=== PATIENT | male | born 1960 | race Hispanic/Latino ===

== ENCOUNTER 2020-03-26 23:45 | Inpatient (IN) | payer MEDICARE ==
[~2020-03-26] VITALS: Ht 177.8 cm; Wt 102.5 kg
[2020-03-27] MEDS ORDERED: ACETAMINOPHEN EXTRA STRENGTH 500 MG TABLET ONE (00:20)
[2020-03-27 00:31] LABS: BASOPHILS % (AUTO) 0.4 % (0.0-5.0); EOSINOPHILS % (AUTO) 0.5 % (0.0-8.0); HEMATOCRIT 32.7 % (42-54); LYMPHOCYTES % (AUTO) 5.7 % (21.0-51.0); MEAN CORPUSCULAR HEMOGLOBIN 31.3 pg (27.0-33.0); MEAN CORPUSCULAR HGB CONC 32.7 g/dL (32.0-36.0); MEAN CORPUSCULAR VOLUME 95.6 fL (79-99); MONOCYTES % (AUTO) 4.5 % (3.0-13.0); NEUTROPHILS % (AUTO) 87.8 % (40.0-77.0); PLATELET COUNT (AUTO) 316 K/uL (130-400); RED BLOOD CELL COUNT(AUTO) 3.42 MIL/uL (4.50-6.20); WHITE BLOOD COUNT (AUTO) 13.6 K/uL (4.8-10.8)
[2020-03-27 00:40] LABS: CARBON DIOXIDE 27 mmol/L (21-32); CHLORIDE 99 mmol/L (101-111); CREATININE 5.9 mg/dL (0.5-1.5); GLOMERULAR FILTR. RATE CALC 10 mL/min (>60); GLUCOSE,RANDOM 272 mg/dL (70-105); POTASSIUM 4.3 mmol/L (3.5-5.1); SODIUM SERUM 134 mmol/L (136-145); UREA NITROGEN, BLOOD 37 mg/dL (7-18)
[2020-03-27 00:42] LABS: ALBUMIN 2.5 g/dL (3.5-5.0); ASPARTATE AMINOTRANSFERASE 13 U/L (10-37); BILIRUBIN,TOTAL 0.2 mg/dL (0.2-1.0); TOTAL PROTEIN, SERUM 7.5 g/dL (6.0-8.3)
[2020-03-27 00:43] LABS: ALANINE AMINOTRANSFERASE < 6 U/L (12-78)
[2020-03-27 00:44] LABS: INR 1.09 (0.85-1.15); PARTIAL THROMBOPLASTIN TIME 30.2 SEC (26.3-35.5); PROTHROMBIN TIME 11.7 SEC (9.6-11.6)
[2020-03-27 00:46] LABS: CREATINE KINASE, TOTAL 50 U/L (21-232); MYOGLOBIN 167 ng/mL (10-92); TROPONIN I < 0.04 ng/mL (0.00-0.06)
[2020-03-27] MEDS ORDERED: CLINDAMYCIN 900 MG/D5% WATER 50 ML IV ONE (01:57)
[2020-03-27] MEDS ORDERED: MORPHINE SULFATE 4 MG/1ML SYG ONE (01:58)
[2020-03-27] MEDS ORDERED: KETOROLAC TROMETHAMINE 30MG/ML ONE (01:58)
[2020-03-27] MEDS ORDERED: ONDANSETRON HCL 4 MG/2 ML VIAL ONE (01:58)
[2020-03-27] MEDS ORDERED: VANCOMYCIN 1GM+NS 250ML 250 ML IV SCH (03:00)
[2020-03-27] MEDS ORDERED: ACETAMINOPHEN 325 MG TAB PO PRN (03:00)
[2020-03-27] MEDS ORDERED: DEXTROSE 50%-WATER 50 ML DISP.SYRIN IV PRN (03:00)
[2020-03-27] MEDS ORDERED: ONDANSETRON HCL 4 MG/2 ML VIAL IV PRN (03:00)
[2020-03-27] MEDS ORDERED: GLUCAGON 1MG KIT 1 MG ML IM PRN (03:00)
[2020-03-27] MEDS ORDERED: LACTULOSE 20 GM/30 ML UDCUP PO PRN (03:00)
[2020-03-27] MEDS ORDERED: CEFTRIAXONE SODIUM 1 GM ONE (03:05)
[2020-03-27] MEDS ORDERED: VANCOMYCIN 1GM+NS 250ML 250 ML IV ONE (03:42)
[2020-03-27] MEDS ORDERED: ZOSYN 3.375GM+NS 50ML 50 ML IV ONE ×3 (03:42→22:12)
[2020-03-27] MEDS ORDERED: VANCOMYCIN PROTOCOL PER PHARMACY IV SCH (04:00)
[2020-03-27] MEDS ORDERED: PHARMACY COMMUNICATION MISC SCH (04:00)
[2020-03-27] MEDS: ZOSYN 3.375GM+NS 50ML 50 ML IV SCH ×3 (05:00→21:00)
[2020-03-27] MEDS: INSULIN HUMULIN R 100 UNIT/ML 3ML SQ SCH ×4 (07:30→21:00)
[2020-03-27] MEDS: FAMOTIDINE 20MG TAB 20 MG TAB PO SCH ×2 (09:00→21:00)
[2020-03-27] MEDS: HEPARIN SODIUM 5000UNIT/ML 1ML VIAL SQ SCH ×2 (09:00→21:00)
[2020-03-27] MEDS ORDERED: COMPOUND IV REFRIGERATED 1 EACH IVSOLN MISC PRN (09:30)
[2020-03-27] MEDS ORDERED: FAMOTIDINE 20MG TAB 20 MG TAB ONE (14:20)
[2020-03-27] MEDS ORDERED: HEPARIN SODIUM 5000UNIT/ML 1ML VIAL ONE (14:20)
[2020-03-27] MEDS ORDERED: INSULIN HUMULIN R 100 UNIT/ML 3ML ONE (22:13)
[2020-03-28 01:36] VITALS: BP 117/89
[2020-03-28 04:52] LABS: BASOPHILS % (AUTO) 0.3 % (0.0-5.0); EOSINOPHILS % (AUTO) 0.7 % (0.0-8.0); HEMATOCRIT 32.3 % (42-54); LYMPHOCYTES % (AUTO) 9.3 % (21.0-51.0); MEAN CORPUSCULAR HEMOGLOBIN 31.5 pg (27.0-33.0); MEAN CORPUSCULAR HGB CONC 32.8 g/dL (32.0-36.0); MEAN CORPUSCULAR VOLUME 95.8 fL (79-99); MONOCYTES % (AUTO) 6.3 % (3.0-13.0); NEUTROPHILS % (AUTO) 82.2 % (40.0-77.0); PLATELET COUNT (AUTO) 319 K/uL (130-400); RED BLOOD CELL COUNT(AUTO) 3.37 MIL/uL (4.50-6.20); WHITE BLOOD COUNT (AUTO) 14.7 K/uL (4.8-10.8)
[2020-03-28] MEDS: ZOSYN 3.375GM+NS 50ML 50 ML IV SCH ×3 (05:00→19:45)
[2020-03-28 05:08] LABS: CREATININE 7.4 mg/dL (0.5-1.5); POTASSIUM 5.2 mmol/L (3.5-5.1)
[2020-03-28] MEDS ORDERED: ZOSYN 3.375GM+NS 50ML 50 ML IV ONE ×2 (05:48→16:19)
[2020-03-28] MEDS ORDERED: HYDROMORPHONE HCL 0.5 MG/0.5 ML ML ONE (06:59)
[2020-03-28] MEDS: INSULIN HUMULIN R 100 UNIT/ML 3ML SQ SCH ×4 (07:30→19:45)
[2020-03-28] MEDS: FAMOTIDINE 20MG TAB 20 MG TAB PO SCH ×2 (09:00→19:45)
[2020-03-28] MEDS: HEPARIN SODIUM 5000UNIT/ML 1ML VIAL SQ SCH ×2 (09:00→19:45)
[2020-03-28] MEDS ORDERED: FAMOTIDINE 20MG TAB 20 MG TAB ONE (09:29)
[2020-03-28] MEDS ORDERED: LIDOCAINE HCL 1% 20 ML VIAL ONE (17:31)
[2020-03-28] MEDS ORDERED: BUPIVACAINE/PF 0.5% 10ML VIAL ONE (17:31)
[2020-03-28] MEDS ORDERED: FENTANYL CITRATE PF 50 MCG/1 ML 2ML VIAL ONE ×3 (18:14→23:02)
[2020-03-28] MEDS ORDERED: MIDAZOLAM HCL 1 MG/ML 2ML VIAL ONE ×2 (18:14→23:43)
[2020-03-28 20:31] VITALS: BP 163/87
[2020-03-28] MEDS ORDERED: METOCLOPRAMIDE 10 MG/2 ML VIAL ONE (21:40)
[2020-03-28] MEDS ORDERED: BUPIVACAINE/PF 0.5% 10ML VIAL IJ ONE (22:50)
[2020-03-28] MEDS ORDERED: LIDOCAINE HCL 1% 20 ML VIAL INJ ONE (22:50)
[2020-03-28] MEDS ORDERED: PROPOFOL 10 MG/ML 20ML VIAL IV ONE (23:21)
[2020-03-28 23:58] VITALS: BP 149/109
[2020-03-29] VITALS (19 sets, daily range): BP systolic 100–168; BP diastolic 42–119
[2020-03-29] MEDS: HYDROMORPHONE 1 MG/1 ML AMP IV PRN ×2 (02:15→10:02)
[2020-03-29] MEDS: ZOSYN 3.375GM+NS 50ML 50 ML IV SCH ×3 (05:08→21:03)
[2020-03-29] MEDS: ACETAMINOPHEN 325 MG TAB PO PRN (05:11)
[2020-03-29 05:17] LABS: HEMATOCRIT 30.7 % (42-54); MEAN CORPUSCULAR HEMOGLOBIN 30.9 pg (27.0-33.0); MEAN CORPUSCULAR HGB CONC 32.6 g/dL (32.0-36.0); MEAN CORPUSCULAR VOLUME 94.8 fL (79-99); RED BLOOD CELL COUNT(AUTO) 3.24 MIL/uL (4.50-6.20); RED CELL DISTRIBUTION WIDTH 11.8 % (11.0-15.5); WHITE BLOOD COUNT (AUTO) 11.3 K/uL (4.8-10.8)
[2020-03-29 05:35] LABS: MAGNESIUM 2.2 mg/dL (1.80-2.40); PHOSPHORUS 7.3 mg/dL (2.5-4.9); POTASSIUM 5.3 mmol/L (3.5-5.1)
[2020-03-29] MEDS: INSULIN HUMULIN R 100 UNIT/ML 3ML SQ SCH ×4 (06:33→21:19)
[2020-03-29] MEDS ORDERED: VANCOMYCIN 1.25 GM in SODIUM CHLORIDE 0.9% 250 ML IV SCH (09:00)
[2020-03-29] MEDS: HEPARIN SODIUM 5000UNIT/ML 1ML VIAL SQ SCH ×2 (09:00→21:20)
[2020-03-29] MEDS: FAMOTIDINE 20MG TAB 20 MG TAB PO SCH ×2 (10:02→21:03)
[2020-03-29] MEDS: HYDROMORPHONE HCL 0.5 MG/0.5 ML ML IV PRN ×2 (14:53→23:04)
[2020-03-29] MEDS ORDERED: CALCIUM ACETATE 667 MG CAPSULE PO SCH (17:00)
[2020-03-29] MEDS ORDERED: ACETAMINOPHEN-CODEINE 300/30MG TAB PO SCH (17:15)
[2020-03-29] MEDS: EPOETIN ALFA-EPBX (ESRD) 10,000 UNIT/ML VIAL SQ SCH (17:23)
[2020-03-29] MEDS ORDERED: TEMAZEPAM 7.5 MG CAPSULE PO SCH (20:00)
[2020-03-30] VITALS (9 sets, daily range): BP systolic 119–169; BP diastolic 63–81
[2020-03-30] MEDS: ACETAMINOPHEN 325 MG TAB PO PRN (02:04)
[2020-03-30] MEDS: ZOSYN 3.375GM+NS 50ML 50 ML IV SCH ×2 (05:35→13:05)
[2020-03-30] MEDS: INSULIN HUMULIN R 100 UNIT/ML 3ML SQ SCH ×4 (05:45→23:30)
[2020-03-30 06:12] LABS: BASOPHILS % (AUTO) 0.6 % (0.0-5.0); EOSINOPHILS % (AUTO) 1.5 % (0.0-8.0); HEMATOCRIT 28.5 % (42-54); LYMPHOCYTES % (AUTO) 10.8 % (21.0-51.0); MEAN CORPUSCULAR HEMOGLOBIN 30.8 pg (27.0-33.0); MEAN CORPUSCULAR HGB CONC 33.3 g/dL (32.0-36.0); MEAN CORPUSCULAR VOLUME 92.5 fL (79-99); MONOCYTES % (AUTO) 9.2 % (3.0-13.0); NEUTROPHILS % (AUTO) 75.5 % (40.0-77.0); PLATELET COUNT (AUTO) 302 K/uL (130-400); RED BLOOD CELL COUNT(AUTO) 3.08 MIL/uL (4.50-6.20); RED CELL DISTRIBUTION WIDTH 11.8 % (11.0-15.5)
[2020-03-30] MEDS: HYDROMORPHONE HCL 0.5 MG/0.5 ML ML IV PRN ×3 (06:35→21:12)
[2020-03-30 06:41] LABS: ALBUMIN 2.1 g/dL (3.5-5.0); BILIRUBIN,TOTAL 0.4 mg/dL (0.2-1.0); CREATININE 6.5 mg/dL (0.5-1.5); POTASSIUM 4.3 mmol/L (3.5-5.1); TOTAL PROTEIN, SERUM 7.1 g/dL (6.0-8.3)
[2020-03-30] MEDS: FAMOTIDINE 20MG TAB 20 MG TAB PO SCH ×2 (11:41→20:47)
[2020-03-30] MEDS: Vitamin B Complex/Vit C/Folic Acid PO SCH (11:41)
[2020-03-30] MEDS: SEVELAMER HCL 800 MG TABLET PO SCH ×3 (11:42→17:00)
[2020-03-30] MEDS ORDERED: DiphenhydrAMINE HCL 50 MG/ML VIAL IVP PRN (12:30)
[2020-03-30 12:35] LABS: HEMATOCRIT 28.5 % (42-54); MEAN CORPUSCULAR HGB CONC 33.3 g/dL (32.0-36.0); MEAN CORPUSCULAR VOLUME 93.1 fL (79-99); RED BLOOD CELL COUNT(AUTO) 3.06 MIL/uL (4.50-6.20); RED CELL DISTRIBUTION WIDTH 11.8 % (11.0-15.5); WHITE BLOOD COUNT (AUTO) 10.8 K/uL (4.8-10.8)
[2020-03-30 12:53] LABS: POTASSIUM 4.7 mmol/L (3.5-5.1)
[2020-03-30 12:56] LABS: INR 1.23 (0.85-1.15)
[2020-03-30 12:58] LABS: PARTIAL THROMBOPLASTIN TIME 28.8 SEC (26.3-35.5)
[2020-03-30] MEDS ORDERED: HEPARIN SODIUM 1000UNIT/ML 10ML VIAL ONE ×2 (13:08→17:21)
[2020-03-30] MEDS ORDERED: NITROGLYCERIN 2 MG/VIAL VIAL IV ONE (13:08)
[2020-03-30] MEDS ORDERED: LIDOCAINE HCL 2% 20ML ONE (13:08)
[2020-03-30] MEDS ORDERED: IODIXANOL 320 MG/ML 100 ML VIAL ONE ×3 (13:08→17:48)
[2020-03-30] MEDS: CEFTAZIDIME PENTAHYDRATE 1 GM/VIAL IVP SCH (13:48)
[2020-03-30] MEDS ORDERED: FENTANYL CITRATE PF 50 MCG/1 ML 2ML VIAL ONE (15:39)
[2020-03-30] MEDS ORDERED: MIDAZOLAM HCL 1 MG/ML 2ML VIAL ONE (15:39)
[2020-03-30] MEDS ORDERED: TICAGRELOR 90 MG TABLET ONE (17:33)
[2020-03-30] MEDS ORDERED: ASPIRIN 325MG EC TAB 325 MG TABLET.DR PO ONE (17:33)
[2020-03-30] MEDS ORDERED: SODIUM CHLORIDE 0.9% 1000ML 1,000 ML IV SCH (18:15)
[2020-03-30] MEDS: ATORVASTATIN CALCIUM 40 MG TABLET PO SCH (20:47)
[2020-03-30 21:48] LABS: APPEARANCE,URINE Clear (CLEAR); BILIRUBIN,URINE Negative (NEGATIVE); COLOR,URINE Yellow (YELLOW); GLUCOSE, URINE (UA) TRACE mg/dL (NEGATIVE); KETONES,URINE Negative (NEGATIVE); LEUKOCYTE ESTERASE ,URINE Negative (NEGATIVE); NITRATE,URINE Negative (NEGATIVE); OCCULT BLOOD,URINE Small (NEGATIVE); PH,URINE 7.5 (5.0-8.0); PROTEIN,URINE 300 mg/dL (NEGATIVE); UROBILINOGEN,URINE 0.2 mg/dL (0.2-1.0)
[2020-03-30 21:55] LABS: WBC,URINE 0-1 /HPF (0-1)
[2020-03-30 21:56] LABS: BACTERIA,URINE Rare /HPF (None Seen); MUCUS,URINE Rare LPF (None Seen); SQUAMOUS EPITHELIAL CELL,UR Rare /HPF (0-2)
[2020-03-31] MEDS: HYDROMORPHONE HCL 0.5 MG/0.5 ML ML IV PRN ×3 (02:39→18:13)
[2020-03-31] MEDS ORDERED: TICAGRELOR 90 MG TABLET ONE (02:54)
[2020-03-31 04:00] VITALS: BP 161/81
[2020-03-31] MEDS ORDERED: TICAGRELOR 90 MG TABLET PO SCH (04:00)
[2020-03-31 04:44] LABS: BASOPHILS % (AUTO) 0.5 % (0.0-5.0); EOSINOPHILS % (AUTO) 1.6 % (0.0-8.0); HEMATOCRIT 31.2 % (42-54); LYMPHOCYTES % (AUTO) 7.8 % (21.0-51.0); MEAN CORPUSCULAR HGB CONC 33.3 g/dL (32.0-36.0); MEAN CORPUSCULAR VOLUME 93.1 fL (79-99); MONOCYTES % (AUTO) 6.9 % (3.0-13.0); NEUTROPHILS % (AUTO) 80.9 % (40.0-77.0); PLATELET COUNT (AUTO) 369 K/uL (130-400); RED BLOOD CELL COUNT(AUTO) 3.35 MIL/uL (4.50-6.20); RED CELL DISTRIBUTION WIDTH 11.8 % (11.0-15.5); WHITE BLOOD COUNT (AUTO) 13.3 K/uL (4.8-10.8)
[2020-03-31 04:58] LABS: CREATININE 7.8 mg/dL (0.5-1.5); POTASSIUM 4.7 mmol/L (3.5-5.1)
[2020-03-31] MEDS: INSULIN HUMULIN R 100 UNIT/ML 3ML SQ SCH ×4 (07:06→21:59)
[2020-03-31 08:38] VITALS: BP 167/69
[2020-03-31 11:53] VITALS: BP 154/86
[2020-03-31] MEDS: FAMOTIDINE 20MG TAB 20 MG TAB PO SCH ×2 (12:21→21:53)
[2020-03-31] MEDS: Vitamin B Complex/Vit C/Folic Acid PO SCH (12:22)
[2020-03-31] MEDS: SEVELAMER HCL 800 MG TABLET PO SCH ×3 (12:22→16:34)
[2020-03-31] MEDS: CEFTAZIDIME PENTAHYDRATE 1 GM/VIAL IVP SCH (12:22)
[2020-03-31] MEDS: CLOPIDOGREL BISULFATE 75 MG TAB PO SCH (12:22)
[2020-03-31] MEDS: ASPIRIN 81MG TAB.CHEW PO SCH (12:22)
[2020-03-31 16:20] VITALS: BP 159/86
[2020-03-31] MEDS: EPOETIN ALFA-EPBX (ESRD) 10,000 UNIT/ML VIAL SQ SCH (18:09)
[2020-03-31 20:00] VITALS: BP 160/85
[2020-03-31] MEDS: ATORVASTATIN CALCIUM 40 MG TABLET PO SCH (21:54)
[2020-04-01] VITALS (7 sets, daily range): BP systolic 144–158; BP diastolic 64–83
[2020-04-01] MEDS: HYDROMORPHONE HCL 0.5 MG/0.5 ML ML IV PRN (02:23)
[2020-04-01 04:49] LABS: HEMATOCRIT 31.5 % (42-54); MEAN CORPUSCULAR VOLUME 93.8 fL (79-99); PLATELET COUNT (AUTO) 397 K/uL (130-400); RED BLOOD CELL COUNT(AUTO) 3.36 MIL/uL (4.50-6.20); WHITE BLOOD COUNT (AUTO) 12.1 K/uL (4.8-10.8)
[2020-04-01 04:55] LABS: CREATININE 6.4 mg/dL (0.5-1.5); PHOSPHORUS 4.9 mg/dL (2.5-4.9); POTASSIUM 4.4 mmol/L (3.5-5.1)
[2020-04-01 05:10] LABS: BAND NEUTROPHILS % (MANUAL) 1 % (0-2); EOSINOPHILS % (MANUAL) 1 % (1-6); LYMPHOCYTES % (MANUAL) 10 % (22-44); MAN.DIFF COMMENT-IMPRESSION MANUAL DIFFERENTIAL; MONOCYTES % (MANUAL) 9 % (2-9); SEGMENTED NEUTROPHILS % 79 % (40-70)
[2020-04-01 05:11] LABS: PLATELET MORPHOLOGY COMMENT ADEQUATE
[2020-04-01] MEDS: INSULIN HUMULIN R 100 UNIT/ML 3ML SQ SCH ×3 (05:59→17:38)
[2020-04-01] MEDS ORDERED: TRAMADOL HCL 50 MG TABLET PO SCH (08:04)
[2020-04-01] MEDS ORDERED: HYDROMORPHONE HCL 0.5 MG/0.5 ML ML IVP PRN (08:30)
[2020-04-01] MEDS: CLOPIDOGREL BISULFATE 75 MG TAB PO SCH (08:40)
[2020-04-01] MEDS: Vitamin B Complex/Vit C/Folic Acid PO SCH (08:40)
[2020-04-01] MEDS: SEVELAMER HCL 800 MG TABLET PO SCH ×3 (08:40→17:38)
[2020-04-01] MEDS: ASPIRIN 81MG TAB.CHEW PO SCH (08:40)
[2020-04-01] MEDS: FAMOTIDINE 20MG TAB 20 MG TAB PO SCH ×2 (08:40→20:16)
[2020-04-01] MEDS ORDERED: AMLODIPINE BESYLATE 5 MG TAB PO SCH (09:00)
[2020-04-01] MEDS ORDERED: RENAL DOSE IV SCH (12:30)
[2020-04-01] MEDS: CEFTAZIDIME PENTAHYDRATE 1 GM/VIAL IVP SCH (12:31)
[2020-04-01] MEDS ORDERED: CLOP75TA14 PO (12:53)
[2020-04-01] MEDS ORDERED: AMLO-257 PO (12:53)
[2020-04-01] MEDS ORDERED: AEC81 PO (12:53)
[2020-04-01 14:37] LABS: INR 1.18 (0.85-1.15); PROTHROMBIN TIME 12.5 SEC (9.6-11.6)
[2020-04-01 14:38] LABS: PARTIAL THROMBOPLASTIN TIME 28.6 SEC (26.3-35.5)
[2020-04-01] MEDS ORDERED: VANCOMYCIN 1.25 GM in SODIUM CHLORIDE 0.9% 250 ML IV SCH (16:00)
[2020-04-01] MEDS: ATORVASTATIN CALCIUM 40 MG TABLET PO SCH (20:16)
== END 2020-04-01 21:35 | DRG 853 ==
LOC: EDH 23:45 → EDHIP 03-27 02:54 → 4CH 03-28 18:48 → 3CH 03-30 23:10
PROVIDERS: ADMIT Family Medicine; ATTEND Family Medicine
PROC: 0JBQ0ZZ Excision of Right Foot Subcutaneous Tissue and Fascia, Open Approach (ICD-10-PCS; 2020-03-27)
PROC: 0Y6N0ZB Detachment at Left Foot, Partial 2nd Ray, Open Approach (ICD-10-PCS; 2020-03-28)
PROC: 0Y6R0Z0 Detachment at Right 2nd Toe, Complete, Open Approach (ICD-10-PCS; principal; 2020-03-28 22:34)
PROC: 5A1D70Z Performance of Urinary Filtration, Intermittent, Less than 6 Hours Per Day (ICD-10-PCS; 2020-03-29)
PROC: 047U3ZZ Dilation of Left Peroneal Artery, Percutaneous Approach (ICD-10-PCS; 2020-03-31)
PROC: 047S3ZZ Dilation of Left Posterior Tibial Artery, Percutaneous Approach (ICD-10-PCS; 2020-03-31)
PROC: B4101ZZ Fluoroscopy of Abdominal Aorta using Low Osmolar Contrast (ICD-10-PCS; 2020-03-31)
PROC: B41G1ZZ Fluoroscopy of Left Lower Extremity Arteries using Low Osmolar Contrast (ICD-10-PCS; 2020-03-31)
PROC: 5A1D70Z Performance of Urinary Filtration, Intermittent, Less than 6 Hours Per Day (ICD-10-PCS; 2020-03-31)
DX: A41.9 Sepsis, unspecified organism (principal); N18.6 End stage renal disease; M72.6 Necrotizing fasciitis; A48.0 Gas gangrene; L03.116 Cellulitis of left lower limb; I12.0 Hypertensive chronic kidney disease with stage 5 chronic kidney disease or end stage renal disease; L02.612 Cutaneous abscess of left foot; M86.8X7 Other osteomyelitis, ankle and foot; E11.52 Type 2 diabetes mellitus with diabetic peripheral angiopathy with gangrene; L97.519 Non-pressure chronic ulcer of other part of right foot with unspecified severity; E11.621 Type 2 diabetes mellitus with foot ulcer; E66.9 Obesity, unspecified; Z20.828 Contact with and (suspected) exposure to other viral communicable diseases; D64.9 Anemia, unspecified; E11.22 Type 2 diabetes mellitus with diabetic chronic kidney disease; R53.81 Other malaise; E11.69 Type 2 diabetes mellitus with other specified complication; Z53.20 Procedure and treatment not carried out because of patient's decision for unspecified reasons; Z83.3 Family history of diabetes mellitus; Z91.19 Patient's noncompliance with other medical treatment and regimen; Z99.2 Dependence on renal dialysis; Z90.49 Acquired absence of other specified parts of digestive tract; Z68.32 Body mass index [BMI] 32.0-32.9, adult
CPT/HCPCS: 36415; 37228; 71045; 72040; 73630; 73700; 73718; 75710; 75716; 80048; 80053; 80202; 81001; 82550; 82948; 83036; 83605; 83735; 83874; 83880; 84100; 84145; 84484; 85025; 85027; 85347; 85610; 85651; 85730; 86140; 86900; 86901; 87040; 87070; 87076; 87077; 87088; 87186; 87205; 87426; 87804; 90935; 93005; 93926; 93971; 99156; 99157; C1760; C1769; C1893; C1894; G0378; J0696; J0713; J1170; J1200; J1644; J1815; J1885; J2250; J2270; J2405; J2543; J2704; J2765; J3010; J3370; J3490; J7050; Q9967; U0003

== ENCOUNTER 2022-03-01 01:27 | Emergency (ER) | payer MEDICARE ==
[~2022-03-01 01:27] MED LIST: AEC81 PO; AMLO-257 PO; CLOP-31 PO
[2022-03-01] MEDS ORDERED: ONDANSETRON 4MG INJ ONE (01:33)
[2022-03-01 01:57] LABS: BASOPHILS % (AUTO) 0.6 % (0.0-5.0); HEMATOCRIT 38.9 % (42-54); LYMPHOCYTES % (AUTO) 30.5 % (21.0-51.0); MEAN CORPUSCULAR HEMOGLOBIN 29.6 pg (27.0-33.0); MEAN CORPUSCULAR HGB CONC 32.9 g/dL (32.0-36.0); MEAN CORPUSCULAR VOLUME 89.8 fL (79-99); MONOCYTES % (AUTO) 7.5 % (3.0-13.0); NEUTROPHILS % (AUTO) 59.2 % (40.0-77.0); PLATELET COUNT (AUTO) 155 K/uL (130-400); RED BLOOD CELL COUNT(AUTO) 4.33 MIL/uL (4.50-6.20); RED CELL DISTRIBUTION WIDTH 13.2 % (11.0-15.5); WHITE BLOOD COUNT (AUTO) 8.5 K/uL (4.8-10.8)
[2022-03-01] MEDS ORDERED: ONDANSETRON 4MG INJ IVP ONE (02:00)
[2022-03-01 02:25] LABS: CREATININE 7.3 mg/dL (0.5-1.5)
[2022-03-01 02:29] LABS: ALBUMIN 4.4 g/dL (3.5-5.0); MAGNESIUM 2.1 mg/dL (1.80-2.40); TOTAL PROTEIN, SERUM 8.2 g/dL (6.0-8.3)
[2022-03-01 02:36] LABS: POTASSIUM 5.7 mmol/L (3.5-5.1)
[2022-03-01] MEDS ORDERED: ACETAMINOPHEN 500 MG TABLET PO ONE (03:00)
[2022-03-01 03:22] VITALS: BP 169/84
== END 2022-03-01 04:17 ==
LOC: EDH 01:27
DX: R11.10 Vomiting, unspecified (principal); I12.0 Hypertensive chronic kidney disease with stage 5 chronic kidney disease or end stage renal disease; E11.22 Type 2 diabetes mellitus with diabetic chronic kidney disease; N18.6 End stage renal disease; Z99.2 Dependence on renal dialysis; Z86.73 Personal history of transient ischemic attack (TIA), and cerebral infarction without residual deficits; Z79.82 Long term (current) use of aspirin; Z79.899 Other long term (current) drug therapy; Z88.0 Allergy status to penicillin
CPT/HCPCS: 99285; 96374; 83735; 84484; 80053; 85025; 36415; 74018; 93005; J2405